=== PATIENT | male | born 1965 | race Caucasian/White ===

== ENCOUNTER 2017-03-29 01:15 | Emergency (ER) | payer SELFPAY ==
[~2017-03-29] VITALS: Ht 177.8 cm; Wt 93.0 kg
--- NOTE | 2017-03-29 01:30 | NUR ---
TO BED 1 AMBULATORY C/O R WRIST PAIN S/P GLF. PT DENIES KO. PT AAOX4 NO ACUTE DISTRESS NOTED, RESP EVEN AND UNLABORED. PENDING ER MD CHRISTIAN.
--- NOTE | 2017-03-29 02:40 | NUR ---
ER MD SPOKE TO PT REGARDING REDUCTION OF R WRIST FRACTURE UNDER MODERATE SEDATION. ALL RISKS EXPLAINED BY ER MD. PT VERBALIZE UNDERSTANDING. CONSENT SIGNED BY PT.
--- NOTE | 2017-03-29 02:49 | NUR ---
RT, EMT EDDIE, JONE TITUS, RN BRENDON, RN SHAVON, AND MYSELF AT BEDSIDE FOR REDUCTION OF R WRIST FRACTURE UNDER MODERATE SEDATION.
--- NOTE | 2017-03-29 02:52 | NUR ---
SEE MODERATE SEDATION INTERVENTION.
--- NOTE | 2017-03-29 02:57 | NUR ---
Jackie warner in EDM - 03/29/17 at 0307 by JESSICA REDUCTION OF THE R WRIST FRACTURE UNDER MODERATE SEDATION DONE. PT TOLERATED PROCEDURE WELL. R ARM SUGAR TONG SPLINT APPLIED BY DERRICK MORGAN. WILL CONTINUE TO MONITOR PT CLOSELY.
--- NOTE | 2017-03-29 03:07 | NUR ---
PT AAOX4 NO ACUTE DISTRESS NOTED, RESP EVEN AND UNLABORED. PT DENIES PAIN OR DISCOMFORT AT THIS TIME. WILL CONTINUE TO MONITOR PT CLOSELY.
--- NOTE | 2017-03-29 03:47 | NUR ---
PT OK TO DISCHARGE PER DR TITUS. IV removed. Catheter intact and site benign. Pressure and 4x4 applied to site. No bleeding noted.Patient discharged to home in stable condition. Written and verbal after care instructions given. Patient verbalizes understanding of instruction.Patient is awake and alert to self, day, and place. PT ambulatory with a steady gait
[2017-03-29 03:49] VITALS: BP 141/80
== END 2017-03-29 03:51 | disposition home or self-care (01) ==
LOC: ER 01:18
DX: S52.501A Unspecified fracture of the lower end of right radius, initial encounter for closed fracture (principal); S52.611A Displaced fracture of right ulna styloid process, initial encounter for closed fracture; W01.0XXA Fall on same level from slipping, tripping and stumbling without subsequent striking against object, initial encounter; Y92.89 Other specified places as the place of occurrence of the external cause; Y93.89 Activity, other specified; Y99.8 Other external cause status
CPT/HCPCS: 73090-TC; 73110; 73130-TC; A4606; J1170; J2405; J3490; J7030; Z7610